=== PATIENT | male | born 1985 | race Caucasian/White ===

== ENCOUNTER 2020-01-01 07:35 | Outpatient (CLI) | payer OTHER, SELFPAY ==
--- NOTE | ~2020-01-01 | MR_ITS ---
EXAMINATION: MR MRCP wo/w con/w 3D wo ind DATE: 01/01/2020 09:12 INDICATION: Right upper quadrant abdominal pain. Nausea. TECHNIQUE: Magnetic resonance imaging (MRI) of the abdomen was performed without and with 20 mL Multi Sunny intravenous contrast. Sequences included coronal T2-weighted FS FSE, coronal T2-weighted FSE, a xial T1-weighted LAVA, coronal FS FIESTA, axial dual-echo T1-weighted SPGR, coronal lava-FLEX, sagitt al T2-weighted FSE, axial T2-weighted FSE, and axial DWI. Thick-slab T2-weighted FSE images were obta ined for magnetic resonance cholangiopancreatography (MRCP). Maximum intensity projection 3-D reconst ructions of the volumetric data were created by the technologist. Postcontrast sequences included cor onal LAVA-flex and time course of axial T1-weighted LAVA. COMPARISON: CT abdomen and pelvis 03/17/2019 FINDINGS: ABDOMEN MRI: There is diffuse hepatic steatosis. There are changes of cholecystectomy. The spleen, pa ncreas, adrenal glands, and kidneys are normal. There are no dilated loops of bowel. There are no pat hologically enlarged lymph nodes. There is no free intraperitoneal fluid. ABDOMEN MRCP: The common duct is normal and measures 3 mm. No choledocholithiasis. IMPRESSION: 1. Diffuse hepatic steatosis. Reviewed, dictated and finalized at location A.
[2020-01-01 08:16] LABS: Estimated Glomerular Filt Rate > 60
== END 2020-01-01 07:36 | disposition home or self-care (01) ==
PROVIDERS: PCP Internal Medicine; Visit Provider Internal Medicine Gastroenterology
DX: R10.11 Right upper quadrant pain (principal); Z90.49 Acquired absence of other specified parts of digestive tract; K76.0 Fatty (change of) liver, not elsewhere classified
CPT/HCPCS: 74183; 76376; A9577

== ENCOUNTER 2022-06-28 14:17 | Outpatient (CLI) | payer OTHER, SELFPAY | END 2022-06-28 14:18 | disposition home or self-care (01) | LOC: ANHAUDIO 14:23 | PROVIDERS: PCP Internal Medicine; Visit Provider Otolaryngology | DX: H90.3 Sensorineural hearing loss, bilateral (principal); H93.19 Tinnitus, unspecified ear; J01.20 Acute ethmoidal sinusitis, unspecified | CPT/HCPCS: 92552; 92556; 92567 ==

== ENCOUNTER 2023-03-23 11:15 | Outpatient (CLI) | payer OTHER, SELFPAY ==
[2023-03-23 11:26] LABS: Basophils Percent Auto 0.4 % (0.2-1.2); Eosinophils Absolute Auto 0.1 K/mm3 (0-0.3); Eosinophils Percent Auto 0.9 % (0-4.4); Hematocrit 47.3 % (42.0-52.0); Hemoglobin 15.6 g/dL (14.0-18.0); Immature Granulocyte Absolute 0.02 K/mm3 (0.00-0.031); Immature Granulocyte Percent A 0.3 % (0-0.5); Lymphocytes Absolute Auto 2.18 K/mm3 (0.9-3.2); Lymphocytes Percent Auto 29.3 % (18.3-44.2); Mean Corpuscular Hemoglobin 31.6 pg (26-34); Mean Corpuscular Volume 95.7 fl (80-100); Mean Platelet Volume 10.2 fl (7.4-10.4); Monocytes Absolute Auto 0.7 K/mm3 (0.1-0.6); Monocytes Percent Auto 8.9 % (2.6-8.5); Neutrophils Absolute Auto 4.5 K/mm3 (1.3-6.7); Neutrophils Percent Auto 60.2 % (45.5-73.1); Platelet Count Result 193 k/mm3 (150-375); Red Blood Count 4.94 M/mm3 (4.6-6.20); Red Cell Distribution Width 11.9 % (11.5-14.5); White Blood Count 7.4 K/mm3 (4.5-10.0)
[2023-03-23 13:31] LABS: Iron 118 ug/dL (49-181)
[2023-03-23 13:36] LABS: Alanine Aminotransferase 61 U/L (6-50); Albumin Level 4.3 g/dL (3.5-5.1); Alkaline Phosphatase 66 U/L (38-126); Anion Gap 9 mmol/L (8-16); Aspartate Amino Transferase 36 U/L (17-59); Bilirubin,Total 1.9 mg/dL (0.2-1.3); Blood Urea Nitrogen 12 mg/dL (9-20); Calcium 8.7 mg/dL (8.4-10.2); Carbon Dioxide 29 mmol/L (22-30); Chloride 101 mmol/L (98-107); Estimated Glomerular Filt Rate > 60; Glucose 111 mg/dL (65-110); Sodium 139 mmol/L (137-145)
[2023-03-23 13:46] LABS: Percent Iron Saturation 46 % (20-50)
== END 2023-03-23 11:16 | disposition home or self-care (01) ==
LOC: ANHLAB 11:17
PROVIDERS: PCP Internal Medicine; Visit Provider Internal Medicine Hematology & Oncology
DX: E83.110 Hereditary hemochromatosis (principal)
CPT/HCPCS: 36415; 80053; 82728; 83540; 83550; 85025

== ENCOUNTER 2023-09-21 10:59 | Outpatient (CLI) | payer OTHER, SELFPAY ==
[2023-09-21 11:13] LABS: Basophils Percent Auto 0.3 % (0.2-1.2); Eosinophils Absolute Auto 0.1 K/mm3 (0-0.3); Eosinophils Percent Auto 1.1 % (0-4.4); Hematocrit 47.6 % (42.0-52.0); Hemoglobin 15.4 g/dL (14.0-18.0); Immature Granulocyte Absolute 0.03 K/mm3 (0.00-0.031); Immature Granulocyte Percent A 0.4 % (0-0.5); Lymphocytes Absolute Auto 1.97 K/mm3 (0.9-3.2); Lymphocytes Percent Auto 26.8 % (18.3-44.2); Mean Corpuscular HGB Conc 32.4 g/dl (32-36); Mean Corpuscular Hemoglobin 31.3 pg (26-34); Mean Corpuscular Volume 96.7 fl (80-100); Monocytes Absolute Auto 0.8 K/mm3 (0.1-0.6); Neutrophils Absolute Auto 4.4 K/mm3 (1.3-6.7); Neutrophils Percent Auto 60.4 % (45.5-73.1); Platelet Count Result 189 k/mm3 (150-375); Red Blood Count 4.92 M/mm3 (4.6-6.20); Red Cell Distribution Width 12.3 % (11.5-14.5); White Blood Count 7.4 K/mm3 (4.5-10.0)
[2023-09-21 12:42] LABS: Alanine Aminotransferase 57 U/L (6-50); Albumin Level 4.8 g/dL (3.5-5.1); Alkaline Phosphatase 65 U/L (38-126); Anion Gap 11 mmol/L (4-12); Aspartate Amino Transferase 33 U/L (17-59); Bilirubin,Total 1.6 mg/dL (0.2-1.3); Blood Urea Nitrogen 11 mg/dL (9-20); Calcium 9.2 mg/dL (8.4-10.2); Carbon Dioxide 29 mmol/L (22-30); Chloride 101 mmol/L (98-107); Estimated Glomerular Filt Rate > 60; Glucose 96 mg/dL (65-110); Potassium 3.8 mmol/L (3.4-5.0); Sodium 141 mmol/L (137-145)
[2023-09-21 12:46] LABS: Iron 103 ug/dL (49-181)
[2023-09-21 13:02] LABS: Percent Iron Saturation 39 % (20-50)
== END 2023-09-21 11:00 | disposition home or self-care (01) ==
LOC: ANHLAB 11:01
PROVIDERS: PCP Clinical Nurse Specialist; Visit Provider Internal Medicine Hematology & Oncology
DX: R79.89 Other specified abnormal findings of blood chemistry (principal); E83.110 Hereditary hemochromatosis
CPT/HCPCS: 36415; 80053; 82728; 83540; 83550; 85025

== ENCOUNTER 2024-02-27 08:07 | Outpatient (CLI) | payer OTHER, SELFPAY ==
--- NOTE | ~2024-02-27 | US_ITS ---
Limited Abdominal Sonogram: Real-time sonographic imaging of the right upper quadrant was performed. Clinical History: Jaundice Findings: The liver appears echogenic, with no evidence of mass lesion or bile duct dilatation. Main portal vein demonstrates normal direction of flow. The gallbladder is absent, compatible prior beth cystectomy. The common bile duct measures 4 mm. The visualized pancreas, aorta, and IVC are unremark able. Right kidney measures 11.5 cm in length, without hydronephrosis or renal stone. Impression: Diffuse fatty infiltration of the liver. Status post cholecystectomy. Reviewed, dictated and finalized at location . D SERGEANT Impression: Diffuse fatty infiltration of the liver. Status post cholecystectomy.
== END 2024-02-27 08:08 | disposition home or self-care (01) ==
PROVIDERS: PCP Clinical Nurse Specialist; Visit Provider Nurse Practitioner Family
DX: R79.89 Other specified abnormal findings of blood chemistry (principal); E83.119 Hemochromatosis, unspecified; K76.0 Fatty (change of) liver, not elsewhere classified
CPT/HCPCS: 76705

== ENCOUNTER 2024-09-22 11:38 | Outpatient (CLI) | payer OTHER, SELFPAY ==
--- OUTSIDE RECORDS SUMMARY | 2024-09-22 11:42 | XMS_ITS | Referral Summary ---
Author Organization [address] Address [address] [place] [id number] Care Team Providers Care Child Development Professor Name Role Phone Suresh Verdin DO Primary Care Provider [phone] Allergies No known active allergies Medications cholestyramine- aspartame (QUESTRAN LIGHT) 4 gram powder in packet Take 4 g by mouth 2 (two) times a day Active famotidine (PEPCID) 20 mg tablet Take 20 mg by mouth 2 (two) times a day Active triamcinolone (NASACORT) 55 mcg nasal inhaler Administer 1 spray into affected nostril(s) daily Active methylPREDNISol one (Medrol, Chepe,) 4 mg DosepackIndicat ions:Fluid level behind tympanic membrane of left ear follow package directions 1 packet Active Active Problems Problem Noted Date Diagnosed Date Hereditary hemochromatosis 01/17/2021 Social History Tobacco Use Types Packs/Day Years Used Date Smoking Tobacco: Never Assessed Sex and Gender Information Value Date Recorded Sex Assigned at Not on file Legal Sex Male 10:39 AM RADIOLOGICAL TECHNICIAN Gender Identity Not on file Sexual Orientation Not on file Last Filed Vital Signs Vital Sign Reading Time Taken Comments Blood Pressure 130/110 05/12/2022 4:58 PM RADIOLOGICAL TECHNICIAN Pulse 154 05/12/2022 4:58 PM RADIOLOGICAL TECHNICIAN Temperature 36.9 C (98.4 F) 05/12/2022 4:58 PM RADIOLOGICAL TECHNICIAN Respiratory Rate 20 05/12/2022 4:58 PM RADIOLOGICAL TECHNICIAN Oxygen Saturation 97% 05/12/2022 4:58 PM RADIOLOGICAL TECHNICIAN Inhaled Oxygen Concentration - - Weight 111.1 kg (245 lb) 05/12/2022 4:58 PM RADIOLOGICAL TECHNICIAN Height 175.3 cm (5' 9) 05/12/2022 4:58 PM RADIOLOGICAL TECHNICIAN Body Mass Index 36.18 05/12/2022 4:58 PM RADIOLOGICAL TECHNICIAN Plan of Treatment Not on file Insurance [facility] H[facility]PPO Address: [place] [address] Care Teams Child Development Professor Relationship Specialty Start Date End Date Suresh Verdin DO PCP - General Internal Medicine 05/12/22
--- OUTSIDE RECORDS SUMMARY | 2024-09-22 11:42 | XMS_ITS | Clinical Summary ---
Author Organization [facility] Address [address] [place] [address] Care Team Providers Care Laboratory Phlebotomist Name Role Phone Suresh Verdin DO Primary Care Provider [phone] Suresh Verdin DO Unavailable [phone] Source Comments [facility],non-owned Affiliates and Associated Physician Practices is amultiple site organization consisting of ambulatory clinics and hospital sitesin [place], [place], [place] and [place]. This disclosure is being madepursuant to the Care Everywhere program and may not contain all information available regarding this patient. Last updated 17.[facility] Allergies No known active allergies Medications * Be aware that medications may not be up to date on this document. Alwaysverify current medications with the patient. pantoprazole EC (PROTONIX) 40 MG tablet Take 40 mg by mouth once daily Active famotidine (PEPCID) 20 MG tablet Take 20 mg by mouth 2 times daily Active loratadine (CLARITIN) 10 MG tablet Take 10 mg by mouth once daily Active triamcinolone (NASACORT AQ) 55 MCG/ACT nasal inhaler Harris 1 spray into each nostril once daily Active Active Problems Problem Noted Date Diagnosed Date Hemochromatosis, hereditary 03/03/2024 Social History Tobacco Use Types Packs/Day Years Used Date Smoking Tobacco: Never Smokeless Tobacco: Never Alcohol Use Standard Drinks/Week Comments Yes 0 (1 standard drink = 0.6 oz pur e alcohol) rarely, champagne Sex and Gender Information Value Date Recorded Sex Assigned at Not on file Legal Sex Male 3:36 PM FAMILY SERVICES ASSISTANT Gender Identity Not on file Sexual Orientation Not on file Last Filed Vital Signs Vital Sign Reading Time Taken Comments Blood Pressure 134/94 05/08/2016 5:35 PM FAMILY SERVICES ASSISTANT Pulse 136 05/08/2016 5:35 PM FAMILY SERVICES ASSISTANT Temperature 36.9 C (98.5 F) 05/08/2016 5:35 PM FAMILY SERVICES ASSISTANT Respiratory Rate 16 05/08/2016 5:35 PM FAMILY SERVICES ASSISTANT Oxygen Saturation 97% 05/08/2016 5:35 PM FAMILY SERVICES ASSISTANT Inhaled Oxygen Concentration - - Weight 106.6 kg (235 lb) 09/16/2019 8:12 AM CDT Height 175.3 cm (5' 9) 09/16/2019 8:12 AM CDT Body Mass Index 34.7 09/16/2019 8:12 AM CDT Plan of Treatment Health Maintenance Due Date Last Done Comments LIPID TESTING 1984 HIV SCREENING 08/08/1999 HEPATITIS C SCREENING 08/03/2002 DTAP/TDAP/TD VACCINES (1 - Tdap) 08/08/2003 HEPATITIS B VACCINE (1 of 3 - 19+ 3-dose series) 08/08/2003 HPV VACCINE (1 - 3-dose SCDM series) 08/08/2011 COVID-19 VACCINE ( - 2023-2 5 season) 2023 DEPRESSION SCREENING 03/12/2024 INFLUENZA VACCINE (#1) 2024 ZOSTER VACCINE (1 of 2) 2034 HIB VACCINE Aged Out No longer eligi ble based on patient's age to complete this topic MENINGOCOCCAL (Group B) VACC INE SHARED DECISION-MAKING Aged Out No longer eligibl e based on patient's age to complete this topic MENINGOCOCCAL GROUPS A/C/Y/W VACCINE Aged Out No longer eligible b ased on patient's age to complete this topic PNEUMOCOCCAL VACCINE Aged Out No long er eligible based on patient's age to complete this topic Insurance Care Teams Laboratory Phlebotomist Relationship Specialty Start Date End Date Suresh Verdin DO PCP - General Internal Medicine 09/16/19 Suresh Verdin DO [phone] (work) Internal Medicine 04/02/19
--- OUTSIDE RECORDS SUMMARY | 2024-09-22 11:42 | XMS_ITS | Clinical Summary ---
Author Organization [facility] Address [address] [place] [address] Care Team Providers Care Director Of Convention Services Name Role Phone Suresh Verdin DO Primary Care Provider Allergies No known active allergies Medications famotidine (PEPCID) 20 mg tablet Take 20 mg by mouth 2 times daily. Active loratadine (CLARITIN) 5 mg/5 mL solution Take 10 mg by mouth daily. Active cholestyramine- aspartame (PREVALITE,QUES LAND LIGHT) 4 gram Powder Take 4 Grams by mouth 2 times daily. Active triamcinolone acetonide (NASACORT AQ) 55 mcg nasal spray Administer 1 [place] in each nostril daily. Active Active Problems Problem Noted Date Diagnosed Date Hereditary hemochromatosis 01/17/2021 Encounters Date Type Department Care Team Description 08/12/2024 External Device Data [facility] ABSTRACTION Provider, Abstract 07/31/2024 External Device Data [facility] ABSTRACTION Provider, Abstract 07/30/2024 External Device Data [facility] ABSTRACTION Provider, Abstract 07/30/2024 External Device Data [facility] ABSTRACTION Provider, Abstract 07/30/2024 External Device Data [facility] ABSTRACTION Provider, Abstract 07/29/2024 External Device Data [facility] ABSTRACTION Provider, Abstract from Last 3 Months Family History Relation Name Status Comments Brother 1 Alive Brother 2 Alive Father Alive Mother Alive Social History Tobacco Use Types Packs/Day Years Used Date Smoking Tobacco: Never Smokeless Tobacco: Never Tobacco Cessation:Counseling Given: Not Answered Alcohol Use Standard Drinks/Week Comments Never 0 (1 standard drink = 0.6 oz pur e alcohol) Sex and Gender Information Value Date Recorded Sex Assigned at Not on file Legal Sex Male 3:42 PM CDT Gender Identity Not on file Sexual Orientation Not on file Last Filed Vital Signs Vital Sign Reading Time Taken Comments Blood Pressure 151/113 09/25/2023 1:26 PM CDT Pulse 134 09/25/2023 1:24 PM CDT Temperature 36.3 C (97.4 F) 09/25/2023 1:24 PM CDT Respiratory Rate 15 09/25/2023 1:24 PM CDT Oxygen Saturation 97% 09/25/2023 1:24 PM CDT Inhaled Oxygen Concentration - - Weight 113.2 kg (249 lb 9.6 oz) 09/25/2023 1:24 PM CDT Height 175.3 cm (5' 9) 09/10/2023 8:02 AM CDT Body Mass Index 36.86 09/10/2023 8:02 AM CDT Plan of Treatment Upcoming Encounters Date Type Department Care Team (Late st Contact Info) Description 09/29/2024 11:45 AM CDT Office Visit [facility] - [place] [address] [facility] [address] [place] [address] Prem Arreguin MD [address] [place] [facility] [address] [place] [address] Health Maintenance Due Date Last Done Comments Pre-Diabetes and Diabetes Screening 1984 DTAP/TDAP/TD VACCINES (1 - Tdap) 08/08/2003 HEPATITIS B VACCINES (1 of 3 - 19+ 3-dose series) 08/08/2003 Preventative Visit- Commercial 03/12/2024 INFLUENZA VACCINE (#1) 2024 HPV VACCINES Aged Out No longer eligi ble based on patient's age to complete this topic Insurance [place] [facility] [id number] [facility] [id number] Care Teams Director Of Convention Services Relationship Specialty Start Date End Date Suresh Verdin DO [address] [id number] PCP - General Internal Medicine 01/17/21
--- OUTSIDE RECORDS SUMMARY | 2024-09-22 11:42 | XMS_ITS | Clinical Summary ---
Author Organization [address] Address [address] [place] [id number] Care Team Providers Care Software Installation Engineer Name Role Phone Suresh Verdin DO Primary Care Provider [phone] Allergies No known active allergies Medications cholestyramine- [...] on file Legal Sex Male 10:39 AM SERVICE TRANSFORMER REPAIR SUPERVISOR Gender Identity Not on file Sexual Orientation Not on file Obstetrics History Last Filed Vital Signs Vital Sign Reading Time Taken Comments Blood Pressure 130/110 05/12/2022 4:58 PM SERVICE TRANSFORMER REPAIR SUPERVISOR Pulse 154 05/12/2022 4:58 PM SERVICE TRANSFORMER REPAIR SUPERVISOR Temperature 36.9 C (98.4 F) 05/12/2022 4:58 PM SERVICE TRANSFORMER REPAIR SUPERVISOR Respiratory Rate 20 05/12/2022 4:58 PM SERVICE TRANSFORMER REPAIR SUPERVISOR Oxygen Saturation 97% 05/12/2022 4:58 PM SERVICE TRANSFORMER REPAIR SUPERVISOR Inhaled Oxygen Concentration - - Weight 111.1 kg (245 lb) 05/12/2022 4:58 PM SERVICE TRANSFORMER REPAIR SUPERVISOR Height 175.3 cm (5' 9) 05/12/2022 4:58 PM SERVICE TRANSFORMER REPAIR SUPERVISOR Body Mass Index 36.18 05/12/2022 4:58 PM SERVICE TRANSFORMER REPAIR SUPERVISOR Plan of Treatment Health Maintenance Due Date Last Done Comments Depression Screening 1984 Hepatitis C Screening 1984 DTaP/Tdap/Td Vaccine (1 - Tdap) 08/08/1995 Varicella Vaccines (1 of 2 - 13+ 2-dose series) 1997 Hepatitis B Screening 2002 Regular Well Visit/Exam 18-64 2002 Covid-19 Vaccine ( season) 2023 02/05/2022, 01/02/2021, 06/14/2020, Additional history exists Influenza Vaccine (Season Ended) 2024 HPV Vaccines Aged Out No longer eligi ble based on patient's age to complete this topic Pneumococcal vaccine <65 Aged Out No longer eligible based on patient's age to complete this topic Insurance [facility] CHOICE PLUS Care Teams Software Installation Engineer Relationship Specialty Start Date End Date Suresh Verdin DO PCP - General Internal Medicine 3/3/23
[2024-09-22 11:48] LABS: Hematocrit 47.6 % (42.0-52.0); Hemoglobin 15.8 g/dL (14.0-18.0); Immature Granulocyte Percent A 0.4 % (0-0.5); Lymphocytes Absolute Auto 2.11 K/mm3 (0.9-3.2); Mean Corpuscular HGB Conc 33.2 g/dl (32-36); Mean Corpuscular Hemoglobin 31.7 pg (26-34); Mean Corpuscular Volume 95.6 fl (80-100); Nucleated Red Blood Cells Absolute Auto 0.000 K/mm3 (0.0-0.012); Nucleated Red Blood Cells Perc 0.0 % (0.0-0.2); Platelet Count Result 199 k/mm3 (150-375); Red Blood Count 4.98 M/mm3 (4.6-6.20); White Blood Count 7.6 K/mm3 (4.5-10.0)
[2024-09-22 16:28] LABS: Iron 170 ug/dL (49-181)
[2024-09-22 16:39] LABS: Percent Iron Saturation 63 % (20-50)
[2024-09-22 17:12] LABS: Ferritin 232.00 ng/mL (17.9-464)
== END 2024-09-22 11:39 | disposition home or self-care (01) ==
LOC: ANHLAB 11:39
PROVIDERS: PCP Internal Medicine; Visit Provider Internal Medicine Hematology & Oncology
DX: E83.110 Hereditary hemochromatosis (principal)
CPT/HCPCS: 36415; 82728; 83540; 83550; 85025